=== PATIENT | female | born 2000 | race Two or more races ===

== ENCOUNTER 2022-04-07 06:37 | Emergency (ER) | payer MEDICAID, OTHER ==
[~2022-04-07] VITALS: Ht 167.6 cm; Wt 145.0 kg
[2022-04-07] MEDS ORDERED: CYCL5TAB MT (09:00)
[2022-04-07] MEDS ORDERED: CYCLOBENZAPRINE 10MG TABLET PO ONE (09:00)
[2022-04-07] MEDS ORDERED: KETOROLAC 60MG/2ML VIAL IM ONE (09:00)
[2022-04-07 09:12] VITALS: BP 115/74
== END 2022-04-07 09:44 | disposition home or self-care (01) ==
LOC: ER 06:51
DX: M54.9 Dorsalgia, unspecified (principal)
CPT/HCPCS: 96372; 99283; J1885